=== PATIENT | female | born 1940 | race Two or more races ===

== ENCOUNTER 2016-06-27 08:05 | Day surgery (SDC) | payer MEDICARE ==
[~2016-06-27 08:05] MED LIST: ASPIRIN81 M1 PO; CALCIUM600 M1 PO; CALTRATE 600+D1 EAC1 PO; CRESTOR20 MG/TAB PO; DIOVAN HCT 1601 EAC1 PO; GLUCOSAMINE CH PO; IRON325 M2 PO; LEVAQUIN500 M1 PO; LIPITOR20 MG PO; MACROBID 100 M100 M1 PO; MILK OF MAGNESIA PO; NORCO 5-325 TA1 EACH PO; PRILOSEC OTC20 M1 PO; SENOKOT-S TABL1 EACH PO; SINGULAIR10 M1 PO; TRICOR145 MG PO; TYLENOL EXTRA500 M1 PO; VITAMIN D32000 UNI3 PO; [UNRECOGNIZED DRUG - OTHER] PO
[2016-06-27 09:01] LABS: BASO % 0.8 % (0-2); EOS % 3.9 % (0-7); EOSINOPHIL ABSOLUTE COUNT 0.2 tho/cmm (0.0-0.7); HCT-HEMATOCRIT 36.9 % (34.0-49.0); HGB-HEMOGLOBIN 12.7 gm/dl (12.0-15.5); LYMPH % 24.9 % (20-45); LYMPH ABSOLUTE COUNT 1.3 tho/cmm (0.8-4.5); MCH (MEAN CORPUSCULAR HGB) 30.5 pg (28.0-32.0); MCHC MEAN CORPUSCULAR HGB CONC 34.4 % (32.0-36.0); MCV (MEAN CELL VOLUME) 88.7 fl (82.0-96.0); MEAN PLATELET VOLUME 10.2 cmc (9.4-12.4); MONOCYTE ABSOLUTE COUNT 0.6 tho/cmm (0.0-1.2); NEUTROPHIL ABSOLUTE COUNT 3.1 tho/cmm (1.6-8.0); NEUTROPHIL-AUTOMATED 3.1 tho/cmm (1.6-8.0); NEUTROPHILS % 59.4 % (40-80); PLATELET COUNT 173 tho/cmm (150-450); RED BLOOD COUNT 4.16 mil/cmm (4.00-5.20); RED CELL DISTRIBUTION WIDTH 12.8 % (12.4-16.4); WHITE BLOOD COUNT 5.2 tho/cmm (4.0-10.0)
[2016-06-27 09:10] LABS: ANION GAP 13 mmol/L (0-20); BLOOD UREA NITROGEN 23 mg/dl (6-24); CALCIUM 9.6 mg/dl (8.5-10.5); CARBON DIOXIDE-VENOUS 28 mmol/L (22-32); CHLORIDE 103 mmol/l (96-110); CREATININE 0.77 mg/dl (0.50-1.10); GLUCOSE 109 mg/dL (70-110); POTASSIUM 3.6 mmol/L (3.7-5.1); SODIUM 140 mmol/L (135-145); eGFR VALUE FOR BLACK 88 mL/Min
== END 2016-06-27 15:35 ==
LOC: SRG 08:05 → SHSA 08:06 → ORW 09:59 → PACU 11:40
PROVIDERS: Anesthesiology; Surgery
PROC: 0WUF0JZ Supplement Abdominal Wall with Synthetic Substitute, Open Approach (ICD-10-PCS; principal; 2016-06-27)
DX: K43.2 Incisional hernia without obstruction or gangrene (principal); I10 Essential (primary) hypertension; I25.10 Atherosclerotic heart disease of native coronary artery without angina pectoris; Z88.5 Allergy status to narcotic agent; Z90.49 Acquired absence of other specified parts of digestive tract; Z98.51 Tubal ligation status; Z98.890 Other specified postprocedural states
CPT/HCPCS: C1781; J0690; J1885; J3010